=== PATIENT | male | born 1935 | race Caucasian/White ===

== ENCOUNTER 2016-10-28 16:52 | Emergency (ER) | payer MEDICARE ==
[2016-10-28 17:04] VITALS: RESP 18; TEMP 97.9
[2016-10-28] MEDS ORDERED: MORPHINE SULFATE 4 MG/ML SYRINGE IV STA (17:29)
[2016-10-28] MEDS ORDERED: SODIUM CHLORIDE 0.9% 500 ML IV STA (17:29)
[2016-10-28] MEDS ORDERED: ONDANSETRON 4 MG/2 ML VIAL IVP STA (17:29)
--- NOTE | 2016-10-28 17:39 | ED ---
Abdominal Pain HPI - General Chief Complaint: Abdominal Pain Stated Complaint: kidney stones Time Seen by Provider: 10/28/16 17:01 Source: patient, EMS, RN notes reviewed Mode of arrival: EMS Limitations: no limitations - History of Present Illness Initial Comments: 79-year-old male presents emergency Department with chief complaint of right flank pain. Patient states she's had pain for last 2 weeks nothing seems to make the pain feel better or worse. He's had some nausea no vomiting no diarrhea no constipation. Patient department appendectomy denies any other surgeries. Patient states that kidney stone in the past in which was removed by Dr. Smalls. Patient states the pain slightly's for similar to this kidney stone but states it was over 20 years ago. Patient denies fever, chills, chest pain. Denies any trauma. Denies rashes. - Related Data Home Medications Medication Instructions Recorded Confirmed Acetaminophen [Tylenol Arthritis] 650 mg PO QID PRN 10/28/16 10/28/16 Aspirin 325 mg PO DAILY 10/28/16 10/28/16 Doxazosin [Cardura] 1 mg PO HS 10/28/16 10/28/16 Loratadine [Claritin] 10 mg PO DAILY 10/28/16 10/28/16 Pravastatin Sodium 80 mg PO HS 10/28/16 10/28/16 Propranolol HCl [Propranolol HCl 120 mg PO DAILY 10/28/16 10/28/16 ER] Quinapril/Hydrochlorothiazide 1 tab PO DAILY 10/28/16 10/28/16 [Quinapril-Hctz 20-12.5 mg Tab] Vit A/Vit C/Vit E/Zinc/Copper 1 cap PO DAILY 10/28/16 10/28/16 [ICAPS SOFTGEL] Previous Rx's Medication Instructions Recorded Hydrocodone/Acetaminophen [[place] 1 tab PO Q6HR PRN #20 tab 10/28/16 5-325] Allergies Allergy/AdvReac Type Severity Reaction Status Date / Time No Known Allergies Allergy Verified 10/28/16 17:27 Review of Systems ROS Statement: Those systems with pertinent positive or pertinent negative responses have been documented in the HPI. ROS Other: All systems not noted in ROS Statement are negative. Past Medical History Past Medical History: Hearing Disorder / Deafness, Hyperlipidemia, Prostate Disorder Additional Past Medical History / Comment(s): kidney stones, tremors History of Any Multi-Drug Resistant Organisms: None Reported Additional Past Surgical History / Comment(s): right knee cartilage removal Past Psychological History: No Psychological Hx Reported Smoking Status: Current every day smoker Past Alcohol Use History: Occasional Past Drug Use History: None Reported General Exam Limitations: no limitations General appearance: alert, in no apparent distress Head exam: Present: atraumatic, normocephalic, normal inspection Cardiovascular Exam: Present: regular rate, normal rhythm, normal heart sounds. Absent: systolic murmur, diastolic murmur, rubs, gallop, clicks GI/Abdominal exam: Present: soft, normal bowel sounds. Absent: distended, tenderness, guarding, rebound, rigid Back exam: Present: full ROM, CVA tenderness (R). Absent: tenderness, CVA tenderness (L) Neurological exam: Present: alert, oriented X3, CN II-XII intact Skin exam: Present: warm, dry, intact, normal color. Absent: rash Course Vital Signs 10/28/16 10/28/16 16:56 19:08 Temperature 97.9 F Pulse Rate 64 57 L Respiratory 18 18 Rate Blood Pressure 137/63 121/72 O2 Sat by Pulse 96 98 Oximetry Medical Decision Making - Medical Decision Making 81-year-old male presented for emergency from for right flank pain. Patient's pain seems to be muscle skeletal in nature. Patient CT does show kidney stones but no stone within the ureter. Patient's lab work essentially unremarkable. Patient be discharged at this time with pain medication follow- up with primary care physician. - Lab Data Result diagrams: 10/28/16 17:48 10/28/16 17:48 Lab Results 10/28/16 10/28/16 10/28/16 Range/Units 17:48 17:48 17:48 WBC 11.1 H (3.8-10.6) k/uL RBC 3.57 L (4.30-5.90) m/uL Hgb 11.1 L (13.0-17.5) gm/dL Hct 33.9 L (39.0-53.0) % MCV 95.0 (80.0-100.0) fL MCH 31.0 (25.0-35.0) pg MCHC 32.7 (31.0-37.0) g/dL RDW 14.0 (11.5-15.5) % Plt Count 357 (150-450) k/uL Neutrophils % 74 % Lymphocytes % 13 % Monocytes % 8 % Eosinophils % 1 % Basophils % 0 % Neutrophils # 8.2 H (1.3-7.7) k/uL Lymphocytes # 1.5 (1.0-4.8) k/uL Monocytes # 0.9 (0-1.0) k/uL Eosinophils # 0.1 (0-0.7) k/uL Basophils # 0.1 (0-0.2) k/uL Sodium 136 L (137-145) mmol/L Potassium 4.5 (3.5-5.1) mmol/L Chloride 101 (98-107) mmol/L Carbon Dioxide 26 (22-30) mmol/L Anion Gap 9 mmol/L BUN 33 H (9-20) mg/dL Creatinine 1.35 H (0.66-1.25) mg/dL Est GFR (MDRD) Af Amer >60 (>60 ml/min/1.73 sqM) Est GFR (MDRD) Non-Af 51 (>60 ml/min/1.73 sqM) Glucose 107 H (74-99) mg/dL Calcium 9.5 (8.4-10.2) mg/dL Total Bilirubin 0.3 (0.2-1.3) mg/dL AST 20 (17-59) U/L ALT 20 L (21-72) U/L Alkaline Phosphatase 79 (38-126) U/L Total Protein 6.9 (6.3-8.2) g/dL Albumin 3.6 (3.5-5.0) g/dL Amylase 62 (30-110) U/L Lipase 364 H (23-300) U/L Urine Color Yellow Urine Appearance Clear (Clear) Urine pH 5.5 (5.0-8.0) Ur Specific [place] 1.017 (1.001-1.035) Urine Protein Negative (Negative) Urine Glucose (UA) Negative (Negative) Urine Ketones 1+ H (Negative) Urine Blood Negative (Negative) Urine Nitrate Negative (Negative) Urine Bilirubin Negative (Negative) Urine Urobilinogen 2.0 (<2.0) mg/dL Ur Leukocyte Esterase Negative (Negative) Disposition Clinical Impression: Right flank pain, Musculoskeletal back pain Disposition: HOME SELF-CARE Condition: Stable Instructions: Flank Pain (ED) Additional Instructions: Please return to the Emergency Department if symptoms worsen or any other concerns. Prescriptions: Hydrocodone/Acetaminophen [[place] 5-325] 1 tab PO Q6HR PRN #20 tab PRN Reason: Pain Time of Disposition: 19:20
[2016-10-28 17:59] LABS: Appearance,Urine Clear (Clear); Basophils # (A) 0.1 k/uL (0-0.2); Basophils % (A) 0 %; Bilirubin,Urine Negative (Negative); CH 31.3; CHCM 33.1; Eosinophils # (A) 0.1 k/uL (0-0.7); Eosinophils % (A) 1 %; Glucose,Urine (UA) Negative (Negative); HCT 33.9 % (39.0-53.0); HDW 2.33; HGB 11.1 gm/dL (13.0-17.5); Ketones,Urine 1+ (Negative); Leukocyte Esterase,Urine Negative (Negative); Luc # (Auto) 0.35; Luc % (Auto) 3; Lymphocytes # (A) 1.5 k/uL (1.0-4.8); Lymphocytes % (A) 13 %; MCHC 32.7 g/dL (31.0-37.0); Mean Platelet Volume 7.1; Monocytes # (A) 0.9 k/uL (0-1.0); Monocytes % (A) 8 %; Neutrophils # (A) 8.2 k/uL (1.3-7.7); Neutrophils % (A) 74 %; Nitrite,Urine Negative (Negative); PH, Urine 5.5 (5.0-8.0); Protein,Urine Negative (Negative); RBC 3.57 m/uL (4.30-5.90); Specific Gravity,Urine 1.017 (1.001-1.035); UA Billing (MACRO vs. MICRO) CHEM; WBC 11.1 k/uL (3.8-10.6); WBC (Perox) 10.93
[2016-10-28 18:07] LABS: ALT 20 U/L (21-72); AST 20 U/L (17-59); Alkaline Phosphatase 79 U/L (38-126); Amylase 62 U/L (30-110); Anion Gap 9 mmol/L; Blood Urea Nitrogen 33 mg/dL (9-20); Calcium 9.5 mg/dL (8.4-10.2); Carbon Dioxide 26 mmol/L (22-30); Chloride 101 mmol/L (98-107); Glucose 107 mg/dL (74-99); Non-African American GFR(MDRD) 51 (>60 ml/min/1.73 sqM); Potassium 4.5 mmol/L (3.5-5.1); Sodium 136 mmol/L (137-145); Total Bilirubin 0.3 mg/dL (0.2-1.3); Total Protein 6.9 g/dL (6.3-8.2)
--- NOTE | 2016-10-28 18:58 | CT ---
EXAMINATION TYPE: CT abdomen pelvis wo con DATE OF EXAM: 10/28/2016 6:27 PM COMPARISON: NONE HISTORY: Hx of appendectomy and kidney stones CT DLP: LLQ and back pain. DLP: 292.70 mGycm FINDINGS: LUNG BASES: No evidence for nodule. No evidence for infiltrate. LIVER/GB: The gallbladder is unremarkable. No space-occupying hepatic lesion. PANCREAS: No pancreatic mass identified. No inflammatory process seen. SPLEEN: No evidence for splenomegaly. No intrasplenic lesions seen. ADRENALS: Bilateral adrenal nodules are noted the largest on the right measures approximately 2.5 cm. The findings may reflect adenomas. Correlate clinically. KIDNEYS: No evidence for renal mass. Bilateral renal calculi seen measuring less than 3 mm each witho ut hydronephrosis or obstructing calculus at this time. Urinary bladder diverticulum to the left of m idline measures 3.8 cm. BOWEL: Appendix has been removed. Sigmoid diverticulosis without diverticulitis. No evidence of bowel obstruction. No inflammatory process. Lymph nodes: No evidence for adenopathy greater than 1 cm. Abdominal aorta: Atheromatous changes seen. No evidence for aneurysm. Genital organs: State enlargement is noted. Other: Severe degenerative change lumbar spine. IMPRESSION: 1 NONOBSTRUCTING NEPHROLITHIASIS. 2. BILATERAL ADRENAL NODULES MAY REFLECT NONFUNCTIONING ADENOMAS. 3. SIGMOID DIVERTICULOSIS WITHOUT DIVERTICULITIS. 4. PROSTATE ENLARGEMENT.
[2016-10-28 19:08] VITALS: BP 121/72; PULSE 57
== END 2016-10-28 19:31 | disposition home or self-care (01) ==
LOC: EC 16:52
DX: R10.9 Unspecified abdominal pain (principal); Z87.442 Personal history of urinary calculi; E78.5 Hyperlipidemia, unspecified; R25.1 Tremor, unspecified; Z79.82 Long term (current) use of aspirin; Z79.899 Other long term (current) drug therapy; F17.200 Nicotine dependence, unspecified, uncomplicated
CPT/HCPCS: 36415; 80053; 82150; 83690; 85025; 81003; 74176; 99284; 96374; 96375; 96361; J2270; J2405